=== PATIENT | female | born 1990 | race Two or more races ===

== ENCOUNTER 2016-11-13 14:25 | Emergency (ER) | payer OTHER ==
[2016-11-13 15:11] VITALS: BP 146/43; PULSE 75; RESP 16; TEMP 98.1; O2SAT 97
[2016-11-13] MEDS ORDERED: IBUPROFEN 200 MG TAB PO ONE (15:43)
--- NOTE | 2016-11-13 15:47 | UCPHY ---
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 She jammed her left 3rd and 4th fingers with pain to the PIP joints of his fingers associated with swelling. The pain worsens with movement and she says that is severe. She also has moderate pain to the right humerus proximally toward the shoulder from a fall. She does not recall the mechanism of injuring her right upper arm. She has not taken any medication for her injuries. The incident occurred shortly prior to arrival. ROS: She denies hitting her head or any other HEENT complaints. Musculoskeletal : No neck or back pain or injuries. Neuro: No numbness or tingling. 5 point ROS is otherwise negative. Smoking Status: Never smoked Physical Exam: Physical Exam Vital signs are normal. General: No acute distress HEENT: Atraumatic. Eyes: Pupils equal and react to light. Extraocular motions are intact. Lungs: No respiratory distress. Cardiac: Brisk capillary refill is intact throughout. Pulses are 2+ and symmetric in the affected extremity. Skin: No rash or pallor. Extremities: Atraumatic except for left hand and right humerus Left hand: Patient has mild swelling to the 3rd and 4th fingers at the PIP joints with circumferential [id number]-moderate. She has limited range of motion for flexion at the PIP joints. There is no other swelling to the fingers. There is no malrotation when viewed on end. Right upper arm: Patient has mild proximal humerus tenderness. I appreciate no shoulder tenderness, no clavicle or scapular tenderness. No elbow tenderness or forearm tenderness. She maintains full range of motion at the shoulder with no shoulder pain. She has mild pain tenderness to the mid humerus laterally. Neuro: Alert and oriented x3 with no sensorimotor deficits. Differential diagnosis: 3rd and 4th finger sprain versus fracture, right upper arm strain verses humerus fracture Constitutional: Initial Vital Signs Temperature (C) 36.7 C 11/13/16 15:01 Heart Rate 75 11/13/16 15:01 Respiratory Rate 16 11/13/16 15:01 Blood Pressure 146/43 H 11/13/16 15:01 O2 Sat (%) 97 11/13/16 15:01 O2 Delivery Mode Room Air Allergies/Adverse Reactions: No Known Allergies Allergy (Verified 11/13/16 15:00) Home Medications: Medication Instructions Recorded Multi-Day Vitamins 11/13/16 Naproxen Sodium 11/13/16 Percocet 5-325 mg Tablet 11/13/16 MDM/Departure - MDM Diagnostics: Left Finger x-ray: Small avulsion fracture nondisplaced to the volar aspect of the proximal 3rd middle phalanx by my interpretation is also a abnormality to the 4th middle phalanx proximally volar aspect that I suspect is also a small avulsion fracture. 4th finger could be old versus new but given acute findings is suspected some new lotion fracture as well. Humerus x-ray: Normal by my interpretation Medications Given: Discontinued Medications Ibuprofen (Motrin) 600 mg PO EDNOW ONE Stop: 11/13/16 15:44 Last Admin: 11/13/16 15:49 Dose: 600 mg ED Course/Re-evaluation: Ibuprofen-600 mg p.o. I counseled the patient regarding her finger fractures. Volar Alumafoam splint applied by our tech to 3rd and 4th fingers with my supervision. She is neurovascularly intact post splint application. After review of her negative humerus x-ray further examination of her arm is most consistent with contusion versus muscle strain. I do not think she has a shoulder injury. - Depart Disposition: Home, Routine, Self-Care Clinical Impression: Finger fracture, left Condition: Good Instructions: Finger Fracture (ED) Additional Instructions: Diagnoses: 1. Left 3rd and 4th finger fractures 2. Right humerus contusion Plan: Ibuprofen 400-600 mg for 6 hours as needed for pain Splint the fingers whenever your up and about Arrange a follow up with work comp clinic affiliated with your place of employment for further evaluation of your fingers. Stand Alone Forms: Work Excuse Referrals: NONE *PRIMARY CARE P,. [Primary Care Provider] - As per Instructions - PQRS PQRS Measurement: NA
--- NOTE | 2016-11-13 18:14 | DX ---
Left Hand and Right Humerus Clinical History: 26-year-old female who fell on ice today hurting her left hand at the level of the distal ring and fifth digits, and upper right arm. COMPARISON STUDY: None. FINDINGS: LEFT HAND (3 Views, at 4:09 PM): Bone mineralization is preserved. There is no acute fracture or disl ocation. The radiocarpal and intercarpal alignments are maintained. There is no radiopaque foreign cuco dy. IMPRESSION: There is no acute osseous abnormality. RIGHT HUMERUS ( AP and Lateral Views, at 4:07 PM): Bone mineralization is preserved. There is no frac ture or dislocation. The glenohumeral and acromioclavicular joints are anatomically aligned. The radi al head and the olecranon are intact, as is the supracondylar aspect of the distal humerus. The visua lized right rib cage is unremarkable. IMPRESSION: Negative.
== END 2016-11-13 16:32 | disposition home or self-care (01) ==
LOC: CED 14:25
DX: S62.643A Nondisplaced fracture of proximal phalanx of left middle finger, initial encounter for closed fracture (principal); S40.021A Contusion of right upper arm, initial encounter; W00.0XXA Fall on same level due to ice and snow, initial encounter; Y93.54 Activity, bowling; Y99.0 Civilian activity done for income or pay; Y92.39 Other specified sports and athletic area as the place of occurrence of the external cause
CPT/HCPCS: 73060-PO; 73130-PO; G0463-PO

== ENCOUNTER 2017-01-30 18:05 | Emergency (ER) | payer OTHER ==
[2017-01-30 18:21] VITALS: BP 118/75; PULSE 65; RESP 16; TEMP 97.9; O2SAT 93
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
[2017-01-30 23:41] LABS: HEPATITIS B SURFACE ANTIBODY POSITIVE (NEGATIVE)
== END 2017-01-30 19:42 | disposition home or self-care (01) ==
LOC: CED 18:05
DX: S61.235A Puncture wound without foreign body of left ring finger without damage to nail, initial encounter (principal); B19.10 Unspecified viral hepatitis B without hepatic coma; W46.1XXA Contact with contaminated hypodermic needle, initial encounter
CPT/HCPCS: 99203-PO; G0463-PO; G0472

== ENCOUNTER 2017-06-29 19:33 | Emergency (ER) | payer OTHER ==
[2017-06-29 19:45] VITALS: BP 108/64; PULSE 70; RESP 16; TEMP 98.6; O2SAT 94
[2017-06-29] MEDS ORDERED: IBUPROFEN 600 MG TAB PO ONE (19:50)
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
== END 2017-06-29 20:13 | disposition home or self-care (01) ==
LOC: CED 19:33
DX: S90.31XA Contusion of right foot, initial encounter (principal); W23.0XXA Caught, crushed, jammed, or pinched between moving objects, initial encounter; Y92.89 Other specified places as the place of occurrence of the external cause; Y99.0 Civilian activity done for income or pay; Y93.89 Activity, other specified
CPT/HCPCS: 73630-PO; L3260